=== PATIENT | female | born 1965 | race Caucasian/White ===

== ENCOUNTER 2017-01-03 06:17 | Day surgery (SDC) | payer OTHER ==
[~2017-01-03] VITALS: Ht 172.7 cm; Wt 114.1 kg
[~2017-01-03 06:17] MED LIST: ASTEPRO30 M1 NS; ATIVAN1 M2 PO; AVAPRO150 M1 PO; AVAPRO150 MG; BENTYL20 M1 PO; BIAXIN500 MG; CEFDINIR300 M1; COZAAR100 MG PO; CPAP; DARVOCET-N 1001 TAB; DORYX100 MG PO; DOXYCYCLINE HYC20 M1 PO; ESTRADIOL1 MG PO; FLEXERIL10 MG PO; HYDROCODON-ACE1 EA16 PO; HYOSCYAMINE0.375 M3 PO; INDERAL LA120 M2 PO; LEVSIN0.125 M1 PO; LEXAPRO10 MG; LIPITOR10 MG PO; MACROBID 100 M100 M1 PO; MELATONIN3 M4 PO; METOPROLOL TART25 MG PO; MOBIC15 M2 PO; NORCO 5-325 TA1 EACH PO; OMNARIS12.5 GM NS; PANTOPRAZOLE SO40 M3 PO; PEPCID20 M1 PO; PERCOCET 5/3251 TAB PO; PREDNISONE; PYRIDIUM200 M2 PO; ROBITUSSIN; TEGRETOL; TRIMETHOPR100 MG/TAB PO; ULTRAM ER100 MG PO; ULTRAM50 M1 PO; VIBERZI75 MG PO; ZOCOR10 M1 PO; ZOCOR20 M1 PO; ZOFRAN ODT4 MG PO; ZOFRAN ODT8 MG PO; [UNRECOGNIZED DRUG - OTHER]
[2017-01-03 07:33] LABS: BASO % 0.5 % (0-2); EOS % 2.4 % (0-7); EOSINOPHIL ABSOLUTE COUNT 0.2 tho/cmm (0.0-0.7); HCT-HEMATOCRIT 40.5 % (34.0-49.0); HGB-HEMOGLOBIN 13.7 gm/dl (12.0-15.5); IMMATURE GRANULOCYTES ABSOLUTE 0.04 tho/cmm (0-0.03); IMMATURE GRANULOCYTES PERCENT 0.7 % (0-0.3); LYMPH % 23.3 % (20-45); LYMPH ABSOLUTE COUNT 1.4 tho/cmm (0.8-4.5); MCHC MEAN CORPUSCULAR HGB CONC 33.8 % (32.0-36.0); MCV (MEAN CELL VOLUME) 82.8 fl (82.0-96.0); MEAN PLATELET VOLUME 10.5 cmc (9.4-12.4); MONOCYTE ABSOLUTE COUNT 0.8 tho/cmm (0.0-1.2); NEUTROPHIL ABSOLUTE COUNT 3.7 tho/cmm (1.6-8.0); NEUTROPHIL-AUTOMATED 3.7 tho/cmm (1.6-8.0); NEUTROPHILS % 60.1 % (40-80); PLATELET COUNT 247 tho/cmm (150-450); RED BLOOD COUNT 4.89 mil/cmm (4.00-5.20); RED CELL DISTRIBUTION WIDTH 15.2 % (12.4-16.4); WHITE BLOOD COUNT 6.2 tho/cmm (4.0-10.0)
[2017-01-03 07:44] LABS: ANION GAP 11 mmol/L (0-20); BLOOD UREA NITROGEN 13 mg/dl (6-24); CALCIUM 8.6 mg/dl (8.5-10.5); CARBON DIOXIDE-VENOUS 28 mmol/L (22-32); CHLORIDE 106 mmol/l (96-110); GLUCOSE 92 mg/dL (70-110); POTASSIUM 4.2 mmol/L (3.7-5.1); SODIUM 141 mmol/L (135-145); eGFR VALUE FOR BLACK 85 mL/Min
== END 2017-01-03 10:43 ==
LOC: ENDOS 06:17 → SHSA 06:17 → ENDOS 09:00
PROVIDERS: Anesthesiology
PROC: 0DBE8ZX Excision of Large Intestine, Via Natural or Artificial Opening Endoscopic, Diagnostic (ICD-10-PCS; principal; 2017-01-03)
DX: R19.7 Diarrhea, unspecified (principal); K64.8 Other hemorrhoids; I10 Essential (primary) hypertension; E66.01 Morbid (severe) obesity due to excess calories; Z68.38 Body mass index [BMI] 38.0-38.9, adult; M17.12 Unilateral primary osteoarthritis, left knee; M47.819 Spondylosis without myelopathy or radiculopathy, site unspecified; F41.9 Anxiety disorder, unspecified; G47.33 Obstructive sleep apnea (adult) (pediatric); K21.9 Gastro-esophageal reflux disease without esophagitis; Z79.1 Long term (current) use of non-steroidal anti-inflammatories (NSAID); Z79.899 Other long term (current) drug therapy; Z88.0 Allergy status to penicillin; Z88.1 Allergy status to other antibiotic agents; Z88.2 Allergy status to sulfonamides; Z88.5 Allergy status to narcotic agent; Z88.8 Allergy status to other drugs, medicaments and biological substances; Z87.891 Personal history of nicotine dependence; Z99.89 Dependence on other enabling machines and devices